=== PATIENT | female | born 1955 | race Caucasian/White ===

== ENCOUNTER 2016-12-06 06:29 | Day surgery (SDC) | payer OTHER ==
[~2016-12-06] VITALS: Ht 170.2 cm; Wt 70.0 kg
[~2016-12-06 06:29] MED LIST: AMBIEN5 MG PO; ARIMIDEX1 MG PO; BACTRIM,SEPT1 TABLET PO; CALCIUM ASCORB500 MG PO; CRESTOR5 MG PO; DIOVAN160 MG PO; DIOVAN80 MG PO; DOXYCYCLINE HYC20 MG PO; FINACEA 15% GEL50 GM TP; METOPROLOL TART25 MG PO; MULTIVITAMIN1 EAC2 PO; TOPROL XL50 MG PO; TRANSDERM-SCO1 PATCH TD; TYLENOL EXTRA500 MG PO; VITAMIN D31000 UNI2 PO; XANAX0.25 MG PO; XANAX1 MG PO
[2016-12-06 06:55] VITALS: BP 116/72
[2016-12-06 09:55] VITALS: BP 135/75
== END 2016-12-06 10:18 | disposition home or self-care (01) ==
LOC: SDC 06:29
PROC: 0UDB8ZX Extraction of Endometrium, Via Natural or Artificial Opening Endoscopic, Diagnostic (ICD-10-PCS; principal; 2016-12-06)
DX: R93.8 Abnormal findings on diagnostic imaging of other specified body structures (principal); D25.0 Submucous leiomyoma of uterus; E66.09 Other obesity due to excess calories; Z68.31 Body mass index [BMI] 31.0-31.9, adult; Z85.3 Personal history of malignant neoplasm of breast; I10 Essential (primary) hypertension; E78.5 Hyperlipidemia, unspecified; Z80.3 Family history of malignant neoplasm of breast; Z82.49 Family history of ischemic heart disease and other diseases of the circulatory system; Z83.49 Family history of other endocrine, nutritional and metabolic diseases; Z83.3 Family history of diabetes mellitus; Z88.0 Allergy status to penicillin; Z88.8 Allergy status to other drugs, medicaments and biological substances
CPT/HCPCS: 88305; J0690; J1100; J1885; J2250; J2405; J3010